=== PATIENT | female | born 1965 | race African-American/Black ===

== ENCOUNTER 2019-05-08 13:07 | Emergency (ER) | payer MEDICAID ==
[~2019-05-08] VITALS: Ht 170.2 cm; Wt 93.0 kg
[2019-05-08 13:35] VITALS: BP_SYST 154
[2019-05-08] MEDS ORDERED: chlorproMAZINE HCL 50 MG/ 2 ML AMP IV ONE (14:15)
[2019-05-08] MEDS ORDERED: NACL 0.9% 1,000 ML IV ONE (14:15)
[2019-05-08] MEDS ORDERED: DIPHENHYDRAMINE INJ 50 MG/ML VIAL IVP ONE (14:15)
[2019-05-08 15:59] VITALS: BP_SYST 143
== END 2019-05-08 15:58 | disposition home or self-care (01) ==
LOC: SED 13:07
DX: R51 Headache (principal); I10 Essential (primary) hypertension
CPT/HCPCS: 70450; 93005; 96374; 99284; J1200; J3230; J7030